=== PATIENT | female | born 1980 | race Caucasian/White ===

== ENCOUNTER 2017-04-08 16:51 | Emergency (ER) | payer MEDICAID ==
[~2017-04-08] VITALS: Ht 160 cm; Wt 90.7 kg
[2017-04-08] MEDS ORDERED: SUBOXONE 8 MG-21 FIL SL (17:18)
[2017-04-08] MEDS ORDERED: LEVOTHYROXINE0.05 M2 PO (17:19)
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
[2017-04-08 19:00] VITALS: BP 136/85
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
== END 2017-04-08 19:03 | disposition home or self-care (01) ==
LOC: UTC 16:51 → ER 16:51 → UTC 17:14
DX: S43.401A Unspecified sprain of right shoulder joint, initial encounter (principal); J06.9 Acute upper respiratory infection, unspecified; Y04.0XXA Assault by unarmed brawl or fight, initial encounter; Y92.89 Other specified places as the place of occurrence of the external cause; M79.642 Pain in left hand; M79.641 Pain in right hand; Z79.899 Other long term (current) drug therapy